=== PATIENT | male | born 1980 | race Caucasian/White ===

== ENCOUNTER 2021-04-11 08:36 | Emergency (ER) | payer SELFPAY ==
[~2021-04-11] VITALS: Ht 167.6 cm; Wt 78.0 kg
[2021-04-11 08:44] VITALS: BP 140/92
[2021-04-11] MEDS ORDERED: TOPUD PO (08:55)
== END 2021-04-11 09:01 | disposition home or self-care (01) ==
LOC: ER 08:51
DX: U07.1 COVID-19 (principal)
CPT/HCPCS: 99283

== ENCOUNTER 2021-04-23 22:33 | Emergency (ER) | payer SELFPAY ==
[~2021-04-23] VITALS: Ht 172.7 cm; Wt 86.0 kg
[~2021-04-23 22:33] MED LIST: TOPUD PO
[2021-04-23 23:35] LABS: BASOPHILS % 0.5 % (0.0-2.0); HEMATOCRIT. 45.2 % (42.0-52.0); MEAN CORPUSCULAR HEMOGLOBIN 32.8 pg (28.0-32.0); MEAN CORPUSCULAR VOLUME 92.6 fL (80.0-94.0); MEAN PLATELET VOLUME 7.7 fl (7.4-10.4); MONOCYTES % 10.6 % (2.0-8.0); NEUTROPHILS % 49.9 % (40.0-76.0); PLATELET 336 x1000/uL (130-400); RED BLOOD CELL COUNT 4.88 mill/uL (4.7-6.1)
[2021-04-23 23:41] LABS: CHLORIDE 106 mEq/L (98-107)
[2021-04-24 00:57] VITALS: BP 121/89
[2021-04-24] MEDS ORDERED: ONDA4TAB5 MT (02:09)
== END 2021-04-24 01:22 | disposition home or self-care (01) ==
LOC: ER 22:33
DX: B34.9 Viral infection, unspecified (principal); R00.0 Tachycardia, unspecified; Z20.822 Contact with and (suspected) exposure to COVID-19
CPT/HCPCS: 36415; 71045; 80053; 85025; 87426; 87804; 93005; 99284